=== PATIENT | male | born 1955 | race Caucasian/White ===

== ENCOUNTER 2022-12-06 11:14 | Outpatient (AMB) | payer MEDICARE, SELFPAY ==
[2022-12-06 11:25] VITALS: BP 126/88; PULSE 85; O2SAT 96; BMI 29.3
--- NOTE | 2022-12-06 11:25 | MHC.PC.OV ---
Vital Signs 12/06/22 11:25 Height 6 ft 2 in Weight 228 lb 8 oz BMI 29.3 BP 126/88 Blood Pressure Location Rt brachial Position Sitting Pulse 85 Pulse Source Pulse Oximeter Pulse Oximetry (%) 96 Oxygen Delivery Method Room Air Intake Visit Reasons: Due for A1C Allergies No Known Allergies Allergy (Verified 12/06/22 11:29) Medication List - Last Reconciled 12/06/22 by NICOLE Gama insulin glargine (Lantus U-100 Insulin) 40 units (0.4 mL) subcut DAILY insulin syringe-needle U-100 As directed to inject insulin once a day lisinopril 2.5 mg PO DAILY 90 days Tobacco use date assessed: 12/06/22 Fall risk assessment: 1 Fall in past year Last assessed Fall Risk: 12/06/22 Dental Screening Dental Screen Date: 12/06/22 Did you have a dental visit in the last 12 months?: No Did you have a dental problem in the last 6 months where you did not have access to dental care?: No Was dental information given to patient?: No HPI Due for A1C HPI Details Pt is a diabetic. A1c in office today is 9.3. Microalbumin is up to date. Denies polyuria, polydipsia, and neuropathy. Pt denies any signs and symptoms of hypoglycemia and does know how to correct it. Pt does not check his blood sugar often, encouraged him to do so. Will increase lantus from 34 units to 40 units. Due for PSA, will order. Denies dribbling with urination, weak stream, and nocturia. Will start low-dose EREN. Refuses statin or any other cholesterol medication. Refuses pneumonia vaccine. Refuses colon screen. He is to a nurse. [facility] Medical History Amputated toe of right foot Family History Paternal Uncle Substance use disorder Mother Mental health disorder Social History Housing: Apartment Patient Tobacco Use Status: Current everyday Tobacco user Tobacco use type: Smokeless Tobacco e-Cigarette/Vaping Use: Never Used service: No Current occupational status: employed Cognitive needs: No Hearing needs: No Vision needs: No Questionnaire Thrive Questionnaire Date Thrive assessed: 11/30/21 DEVANTE-7 AMB Questionnaire DEVANTE-7 Date DEVANTE - 7 assessed: 11/30/21 Source: Developed by Drs. Perez Shah, Rosetta Abbasi, Ross Hall and colleagues, with an educational jasmyne from [employer]. Review of Systems Const Reports as per HPI Physical exam (Primary Care) Vital Signs: Last Vital Signs Pulse 85 12/06/22 11:25 BP 126/88 12/06/22 11:25 Pulse Ox 96 12/06/22 11:25 Oxygen Delivery Method Room Air 12/06/22 11:25 BMI result Body Mass Index 29.3 Tobacco/Smoking Status: Tobacco use Status Tobacco use date assessed 12/06/22 12/06/22 11:33 Patient Tobacco Use Status Current everyday Tobacco 12/06/22 11:33 Tobacco use type Smokeless Tobacco 12/06/22 11:33 e-Cigarette/Vaping Use Never Used 12/06/22 11:33 Thrive Assessment: Date of Thrive Assessment Date Thrive assessed 11/30/21 12/06/22 11:33 Const General: cooperative Orientation/consciousness: patient oriented x3 Resp Other: lungs fairly clear Effort & Inspection: normal respiratory effort Cardio Rate: regular rate Rhythm: regular rhythm Heart sounds: S1 normal heart sound present and S2 normal heart sound present Neuro General: patient oriented x3 Extrem Other: bilat feet: + sensation with use of monofilament, right 3rd toe amputated, right foot dry scaling to dorsal aspect, left foot dorsal aspect with significant dry scaling Psych Appearance: grossly normal Mental Status: mental status grossly normal Speech and movement: Normal speech and movement present Affect: normal affect Attitude: cooperative Thought process: Normal thought process present Thought content: Normal thought content present Insight: Good insight present (Psych) Judgement: Good judgement present (Psych) Results AMB Hemoglobin A1c AMB Hemoglobin A1c 9.3 % Last Edit by Corrine Hudson CMA on 12/06/22 12:11 Results Reviewed Results Reviewed: Laboratory Last Values Hgb A1c (Clinic) 9.3 % (4.0-6.0) H 12/06/22 12:10 Assessment and Plan Assessment & Plan (1) Diabetes: Code(s): E11.9 - Type 2 diabetes mellitus without complications Plan: Labs ordered, encouraged lotion of feet (2) Screening PSA (prostate specific antigen): Code(s): Z12.5 - Encounter for screening for malignant neoplasm of prostate Plan: PSA ordered Plan The patient agreed to the use of a medical laboratory manager for this encounter. Scribed for NICOLE Carrillo by Portia Garcia medical laboratory manager, on 12/06/2022 at 11:40 EST. Orders: Orders Comprehensive [place]. Panel Fast Today E11.9 - Type 2 diabetes mellitus without complications Lipid Panel Today E11.9 - Type 2 diabetes mellitus without complications TSH reflex Free T4 Today E11.9 - Type 2 diabetes mellitus without complications Complete Blood Count Auto Diff Today E11.9 - Type 2 diabetes mellitus without complications UA CC w/rflx Micro + Cult Today E11.9 - Type 2 diabetes mellitus without complications Prostate Specific Antigen Scr Today Z12.5 - Encounter for screening for malignant neoplasm of prostate AMB Hemoglobin A1c Today E11.9 - Type 2 diabetes mellitus without complications Medications: New lisinopril 2.5 mg PO DAILY 90 days 90 tabs 0RF lisinopril 2.5 mg PO DAILY 90 tabs 0RF 90 days Changed From insulin glargine (Lantus U-100 Insulin) 34 units (0.34 mL) subcut DAILY 30 mL 1RF To insulin glargine (Lantus U-100 Insulin) fill this script please 40 units (0.4 mL) subcut DAILY 30 mL 1RF Refilled insulin glargine (Lantus U-100 Insulin) 34 units (0.34 mL) subcut DAILY 30 mL 1RF Coding Level of Care Code Est Pt Level 3 (97019) Diagnoses Diabetes E11.9 Screening PSA (prostate specific antigen) Z12.5
== END 2022-12-06 13:15 | disposition home or self-care (01) ==
PROVIDERS: PCP Nurse Practitioner Family; Visit Provider Nurse Practitioner Family
DX: E11.9 Type 2 diabetes mellitus without complications (principal); Z12.5 Encounter for screening for malignant neoplasm of prostate
CPT/HCPCS: 83036; 99213

== ENCOUNTER 2023-07-04 11:30 | Outpatient (AMB) | payer MEDICARE, SELFPAY ==
[2023-07-04 11:32] VITALS: BP 130/76; PULSE 78; O2SAT 97
--- NOTE | 2023-07-04 11:32 | A.OFFPC_ITS ---
Vital Signs 07/04/23 11:32 Height 6 ft 2 in Weight 234 lb BMI 30.0 BP 130/76 Blood Pressure Location Lt brachial Position Sitting Pulse 78 Pulse Source Pulse Oximeter Pulse Oximetry (%) 97 Oxygen Delivery Method Room Air Intake Visit Reasons: HDF ~ Post hospital discharge FU Intake Note: pt is here for post hosp discharge f/u Embedded Software Manager Required: No Accompanied by: Self / Same As Patient Allergies No Known Allergies Allergy (Verified 07/04/23 12:39) Medication List - Last Reconciled 07/04/23 by DERIK Gama- baclofen 10 mg PO TID PRN 30 days docusate sodium (Colace) 200 mg PO DAILY insulin glargine (Lantus U-100 Insulin) 50 units (0.5 mL) subcut DAILY insulin glargine 50 units subcut QPM insulin lispro 1 sliding scale dose subcut USEASDIRECTD insulin syringe-needle U-100 As directed to inject insulin once a day lidocaine 5% 1 patch topical DAILY lisinopril 2.5 mg PO DAILY 90 days miconazole nitrate 2% 1 appl topical BID nicotine 1 patch transdermal DAILY trazodone 50 mg PO BEDTIME PRN 30 days Tobacco use date assessed: 07/04/23 Fall risk assessment: No Falls in past year Last assessed Fall Risk: 07/04/23 Dental Screening Dental Screen Date: 07/04/23 Did you have a dental visit in the last 12 months?: Yes Did you have a dental problem in the last 6 months where you did not have access to dental care?: No Was dental information given to patient?: Patient has dentist HPI HDF ~ Post hospital discharge FU HPI Details Pt was seen in the ER on 04/08 c/o right thigh pain, right foot swelling, redness, and discharge. XR showed erosion of the distal metatarsal of the 2nd toe, unclear if this could be from previous surgery or represent ongoing or new ostemyelitis. He was given vancomycin and ceftriaxone. CT of the RLE showed right inguinal lymph node, no abnormality in anterior thigh. MRI of the right foot showed patchy marrow edema in the 2nd proximal phalanx, plantar ulceration in the medial forefoot. Labs showed normal WBC count, mild anemia, normal platelets, creatinine elevated at 1.5. Pt reports that he was treated with antibiotics. Today, he reports doing well. Denies fever, chills, and dizziness. reports his RLE feels great. He reports his ulceration to his foot is healed. A1C today is 8.5, pt does not want to change any medications. Refuses statin. [facility] Medical History Amputated toe of right foot Family History Paternal Uncle Substance use disorder Mother Mental health disorder Social History Housing: Apartment Patient Tobacco Use Status: Current everyday Tobacco user Tobacco use type: Smokeless Tobacco e-Cigarette/Vaping Use: Never Used service: No Current occupational status: employed Cognitive needs: No Hearing needs: No Vision needs: No Questionnaire Thrive Questionnaire Date Thrive assessed: 11/30/21 DEVANTE-7 AMB Questionnaire DEVANTE-7 Date DEVANTE - 7 assessed: 11/30/21 Source: Developed by Drs. Perez Shah, Rosetta Abbasi, Ross Hall and colleagues, with an educational jasmyne from [employer]. Review of Systems Const Reports as per HPI Physical exam (Primary Care) Vital Signs: Last Vital Signs Pulse 78 07/04/23 11:32 BP 130/76 07/04/23 11:32 Pulse Ox 97 07/04/23 11:32 Oxygen Delivery Method Room Air 07/04/23 11:32 BMI result Body Mass Index 30.0 Tobacco/Smoking Status: Tobacco use Status Tobacco use date assessed 07/04/23 07/04/23 11:41 Patient Tobacco Use Status Current everyday Tobacco 07/04/23 11:33 Tobacco use type Smokeless Tobacco 07/04/23 11:33 e-Cigarette/Vaping Use Never Used 07/04/23 11:33 Thrive Assessment: Date of Thrive Assessment Date Thrive assessed 11/30/21 07/04/23 11:33 Const General: cooperative Orientation/consciousness: patient oriented x3 Resp Effort & Inspection: normal respiratory effort Auscultation: clear to auscultation bilaterally Cardio Rate: regular rate Rhythm: regular rhythm and abnormal rhythm Heart sounds: S1 normal heart sound present and S2 normal heart sound present Neuro General: patient oriented x3 Extrem Other: amputated right 3rd toe, right foot plantar aspect of 1st MTP joint with healed ulceration, no signs of infection, minimal sensation to right toes, no sensation to entire left foot, + dorsalis pedus pulses, no pain with palpation of entire right thigh Psych Appearance: grossly normal Mental Status: mental status grossly normal Speech and movement: Normal speech and movement present Affect: normal affect Attitude: cooperative Thought process: Normal thought process present Thought content: Normal thought content present Insight: Good insight present (Psych) Judgement: Good judgement present (Psych) Assessment and Plan Assessment & Plan (1) Foot ulcer: Code(s): L97.509 - Non-pressure chronic ulcer of other part of unspecified foot with unspecified severity Plan: Doing well, labs ordered (2) Infection: Code(s): B99.9 - Unspecified infectious disease Plan: Doing well, labs ordered (3) Screening PSA (prostate specific antigen): Code(s): Z12.5 - Encounter for screening for malignant neoplasm of prostate Plan The patient agreed to the use of a electromedical service engineer for this encounter. Scribed for DERIK Carrillo-BC by Portia Garcia electromedical service engineer, on 07/04/2023 at 12:00 EST. Orders: Orders Complete Blood Count Auto Diff Today B99.9 - Unspecified infectious disease, L97.509 - Non-pressure chronic ulcer of other part of unspecified foot with unspecified severity Comprehensive Met. Panel Today B99.9 - Unspecified infectious disease, L97.509 - Non-pressure chronic ulcer of other part of unspecified foot with unspecified severity TSH reflex Free T4 Today B99.9 - Unspecified infectious disease, L97.509 - Non- pressure chronic ulcer of other part of unspecified foot with unspecified severity Prostate Specific Antigen Scr Today Z12.5 - Encounter for screening for malignant neoplasm of prostate UA CC w/rflx Micro + Cult Today B99.9 - Unspecified infectious disease, L97.509 - Non-pressure chronic ulcer of other part of unspecified foot with unspecified severity Coding Level of Care Code Est Pt Level 3 (91660) Diagnoses Foot ulcer L97.509 Infection B99.9 Screening PSA (prostate specific antigen) Z12.5
== END 2023-07-04 12:23 | disposition home or self-care (01) ==
PROVIDERS: PCP Nurse Practitioner Family; Visit Provider Nurse Practitioner Family
DX: L97.509 Non-pressure chronic ulcer of other part of unspecified foot with unspecified severity (principal); B99.9 Unspecified infectious disease; Z12.5 Encounter for screening for malignant neoplasm of prostate
CPT/HCPCS: 99213

== ENCOUNTER 2023-07-04 12:27 | Outpatient (REF) | payer MEDICARE, SELFPAY ==
[2023-07-04 16:27] LABS: MANUAL DIFF FLAG NO
[2023-07-04 16:32] LABS: Basophils Percent Auto 0.7 % (0-2); Eosinophils Absolute Auto 0.1 X10*3/uL (0.0-0.4); Eosinophils Percent Auto 2.6 % (0-4); Hematocrit 45.3 % (42.0-52.0); Hemoglobin 15.6 g/dl (14.0-18.0); Imm Gran Abs Auto 0.03 X10*3/uL (0.00-0.03); Imm Gran Pct Auto 0.6 % (0.0-0.4); Lymphocytes Absolute Auto 1.1 X10*3/uL (1.2-4.9); Mean Corpuscular HGB Conc 34.4 g/dl (31.0-36.0); Mean Corpuscular Hemoglobin 29.6 pg (27.0-33.0); Mean Platelet Volume 9.7 fL (9.4-12.4); Monocytes Absolute Auto 0.3 X10*3/uL (0.1-1.2); Monocytes Percent Auto 6.3 % (2-11); Neutrophils Absolute Auto 3.7 x10*3/uL (2.0-8.3); Neutrophils Percent Auto 68.8 % (45-73); Platelet Count 118 X10*3/uL (160-400); Red Blood Count 5.27 X10*6/uL (4.60-5.80); Red Cell Distribution Width 14.2 % (11.0-16.0); White Blood Count 5.4 X10*3/uL (4.8-10.8)
[2023-07-04 16:48] LABS: Alanine Aminotransferase 15 U/L (0-40); Albumin Level 4.3 g/dL (3.5-5.0); Alkaline Phosphatase 101 U/L (39-117); Anion Gap 8 (12-20); Aspartate Amino Transferase 16 U/L (5-37); Bilirubin Total 0.6 mg/dL (0.0-1.0); Blood Urea Nitrogen 18 mg/dL (9-16); Calcium 9.5 mg/dL (8.4-10.2); Carbon Dioxide 32 mmol/L (22-29); Chloride 102 mmol/L (96-108); Estimated Glomerular Filt Rate 60; Glucose Random 254 mg/dL (60-115); Potassium 4.4 mmol/L (3.3-5.1); Sodium 138 mmol/L (135-145); Total Protein 7.2 g/dL (6.5-8.0)
[2023-07-04 16:58] LABS: Prostate Specific Antigen Scr 1.05 ng/mL (<0.05-4.0)
[2023-07-04 18:06] LABS: TSH reflex Free T4 1.96 uIU/mL (0.32-4.0)
== END 2023-07-04 12:28 | disposition home or self-care (01) ==
LOC: HO.HMGCLDS 12:27
PROVIDERS: PCP Nurse Practitioner Family; Visit Provider Nurse Practitioner Family
DX: Z12.5 Encounter for screening for malignant neoplasm of prostate (principal); L97.509 Non-pressure chronic ulcer of other part of unspecified foot with unspecified severity; B99.9 Unspecified infectious disease
CPT/HCPCS: 36415; 80053; 84153; 84443; 85025

== ENCOUNTER 2023-08-03 10:08 | Outpatient (REF) | payer MEDICARE, SELFPAY ==
[2023-08-03 13:32] LABS: MANUAL DIFF FLAG NO
[2023-08-03 13:49] LABS: Basophils Percent Auto 0.6 % (0-2); Eosinophils Absolute Auto 0.1 X10*3/uL (0.0-0.4); Eosinophils Percent Auto 2.1 % (0-4); Hematocrit 44.7 % (42.0-52.0); Hemoglobin 15.5 g/dl (14.0-18.0); Imm Gran Abs Auto 0.02 X10*3/uL (0.00-0.03); Imm Gran Pct Auto 0.4 % (0.0-0.4); Lymphocytes Absolute Auto 1.2 X10*3/uL (1.2-4.9); Lymphocytes Percent Auto 24.2 % (20-40); Mean Corpuscular HGB Conc 34.7 g/dl (31.0-36.0); Mean Corpuscular Hemoglobin 29.6 pg (27.0-33.0); Mean Corpuscular Volume 85.5 fL (80.0-98.0); Mean Platelet Volume 9.2 fL (9.4-12.4); Monocytes Absolute Auto 0.3 X10*3/uL (0.1-1.2); Monocytes Percent Auto 6.9 % (2-11); Neutrophils Absolute Auto 3.2 x10*3/uL (2.0-8.3); Neutrophils Percent Auto 65.8 % (45-73); Platelet Count 115 X10*3/uL (160-400); Red Blood Count 5.23 X10*6/uL (4.60-5.80); Red Cell Distribution Width 13.6 % (11.0-16.0); White Blood Count 4.8 X10*3/uL (4.8-10.8)
== END 2023-08-03 10:09 | disposition home or self-care (01) ==
LOC: HO.HMGCLDS 10:08
PROVIDERS: PCP Nurse Practitioner Family; Visit Provider Nurse Practitioner Family
DX: D69.6 Thrombocytopenia, unspecified (principal)
CPT/HCPCS: 36415; 85025

== ENCOUNTER → 2023-09-11 12:46 | Outpatient (BNV) | payer MEDICARE, SELFPAY | PROVIDERS: PCP Nurse Practitioner Family; Referring Provider Nurse Practitioner Family; Visit Provider Internal Medicine | DX: D69.6 Thrombocytopenia, unspecified (principal) | CPT/HCPCS: 99204 ==

== ENCOUNTER 2023-11-15 09:53 | Outpatient (AMB) | payer MEDICARE, SELFPAY ==
--- NOTE | 2023-11-15 10:19 | A.OFFPC_ITS ---
Vital Signs 11/15/23 10:27 Height 6 ft 2 in Weight 242 lb BMI 31.1 BP 120/84 Blood Pressure Location Rt brachial Position Sitting Pulse 77 Pulse Source Pulse Oximeter Pulse Oximetry (%) 97 Oxygen Delivery Method Room Air Intake Visit Reasons: 4M F/U - see comments Intake Note: Patient here for DM f/u. Allergies No Known Allergies Allergy (Verified 11/15/23 10:47) Medication List - Last Reconciled 11/15/23 by NICOLE Gama baclofen 10 mg PO TID PRN 30 days docusate sodium (Colace) 200 mg PO DAILY insulin glargine 60 units subcut QPM insulin syringe-needle U-100 Use to inject insulin 4 times per day lisinopril 2.5 mg PO DAILY 90 days Tobacco use date assessed: 07/04/23 Fall risk assessment: No Falls in past year Last assessed Fall Risk: 11/15/23 Dental Screening Dental Screen Date: 07/04/23 HPI 4M F/U - see comments HPI Details Pt is a diabetic, on an EREN. A1C in office today is 10.1. Due for microalbumin, will order. Denies polyuria, polydipsia, gets intermittent neuropathy. Pt denies any signs and symptoms of hypoglycemia and does know how to correct it. Will increase lantus from 50 units to 60 units. Pt refuses mealtime insulin. He does not really want a eye exam, still placed referral in. Refuses any type of cholesterol med and colon screens. Pt also refuses any pneumo vaccinations. [facility] Medical History Amputated toe of right foot Family History Paternal Uncle Substance use disorder Mother Mental health disorder Social History Household Members: Spouse Housing: Apartment Patient Tobacco Use Status: Current everyday Tobacco user Tobacco use type: Smokeless Tobacco e-Cigarette/Vaping Use: Never Used service: No Current occupational status: employed Cognitive needs: No Hearing needs: No Vision needs: No Questionnaire PHQ-9 Over the last 2 weeks, how often have you been bothered by any of the following problems? 1. Little interest or pleasure in doing things: not at all 2. Feeling down, depressed, or hopeless: not at all 3. Trouble falling or staying asleep, or sleeping too much: not at all 4. Feeling tired or having little energy: not at all 5. Poor appetite or overeating: not at all 6. Feeling bad about yourself - or that you are a failure or have let yourself or your family down: not at all 7. Trouble concentrating on things, such as reading the newspaper or watching television: not at all 8. Moving or speaking so slowly that other people could have noticed. Or the opposite - being so fidgety or restless that you have been moving around a lot more than usual: not at all 9. Thoughts that you would be better off or of hurting yourself in some way: not at all Total score: 0 Depression Screening Interpretation: Negative Depression Screening Done: Yes 77076 - PHQ-9 Billing: Yes Source: Developed by Drs. Perez Shah, Rosetta Abbasi, Ross Hall and colleagues, with an educational jasmyne from [employer]. Thrive Questionnaire Date Thrive assessed: 11/15/23 I am a: Patient What is your living situation today?: I have a steady place to live Within the past 12 months, did the food you bought not last and you didn't have the money to get more?: Never true Within the past 12 months, did you worry whether your food would run out before you got money to buy more?: Never true Do you have trouble paying for medicines?: No Do you have trouble getting transportation to medical appointments?: No Do you have trouble paying your heating and electricity bill?: No Do you have trouble taking care of your child, family member or friend?: No Do you have trouble with day-to-day activities such as bathing, preparing meals, shopping, managing finances, etc.?: No Are you currently unemployed and looking for a job?: No Are you interested in more education?: No Please select the resources that you would like help with: Housing/Prison Currently or been in a relationship where the following occur: No concerns reported THRIVE Score: 0 AUDIT C Alcohol Use Questionnaire (AUDIT-C) 1. How often do you have a drink containing alcohol?: 2-4 times a month 2. How many drinks containing alcohol do you have on a typical day when you are drinking?: 1 or 2 3. How often do you have six or more drinks on one occasion?: Never Total Score: 2 DEVANTE-7 AMB Questionnaire DEVANTE-7 Date DEVANTE - 7 assessed: 11/15/23 Feeling nervous, anxious, or on edge: 0 = Not at all Not being able to stop or control worryin = Not at all Worrying too much about different things: 0 = Not at all Trouble relaxin = Not at all Being so restless that it is hard to sit still: 0 = Not at all Becoming easily annoyed or irritable: 0 = Not at all Feeling afraid as if something awful might happen: 0 = Not at all Total DEVANTE-7 score (0-4 normal; 5-9 mild; 10-14 moderate; 15-21 severe): 0 Source: Developed by Drs. Perez Shah, Rosetta Abbasi, Ross Hall and colleagues, with an educational jasmyne from [employer]. DEVANTE-7 Assessment Billing DEVANTE-7 Assessment Tool: DEVANTE-7 Assessment [id number] Review of Systems Const Reports as per HPI Physical exam (Primary Care) Vital Signs: Last Vital Signs Pulse 77 11/15/23 10:27 BP 120/84 11/15/23 10:27 Pulse Ox 97 11/15/23 10:27 Oxygen Delivery Method Room Air 11/15/23 10:27 BMI result Body Mass Index 31.1 Tobacco/Smoking Status: Tobacco use Status Tobacco use date assessed 07/04/23 11/15/23 10:19 Patient Tobacco Use Status Current everyday Tobacco 11/15/23 10:19 Tobacco use type Smokeless Tobacco 11/15/23 10:19 e-Cigarette/Vaping Use Never Used 11/15/23 10:19 PHQ-9: PHQ-9 Score PHQ-9: Total score 0 11/15/23 10:37 Depression Screening Interpretation: Negative Thrive Assessment: Date of Thrive Assessment Date Thrive assessed 11/15/23 11/15/23 10:31 Currently or been in a relationship where the following occur: No concerns reported Const General: cooperative Orientation/consciousness: patient oriented x3 Resp Effort & Inspection: normal respiratory effort Auscultation: clear to auscultation bilaterally Cardio Rate: regular rate Rhythm: regular rhythm Heart sounds: S1 normal heart sound present and S2 normal heart sound present Neuro General: patient oriented x3 Extrem Other: bilat feet: + sensation with use of monofilament, right foot dry skin, amputated right 3rd toe, left foot 2nd toe dorsal aspect with small linear abrasion Psych Appearance: grossly normal Mental Status: mental status grossly normal Speech and movement: Normal speech and movement present Affect: normal affect Attitude: cooperative Thought process: Normal thought process present Thought content: Normal thought content present Insight: Good insight present (Psych) Judgement: Good judgement present (Psych) Results AMB Hemoglobin A1c AMB Hemoglobin A1c 10.1 % Last Edit by GLORIA Burnett on 11/15/23 10:52 Assessment and Plan Assessment & Plan (1) Diabetes: Code(s): E11.9 - Type 2 diabetes mellitus without complications Plan: Labs ordered Plan The patient agreed to the use of a medical service representative for this encounter. Scribed for NICOLE Carrillo by krista Bowers scribe, on 11/15/2023 at 10:35 EST. Orders: Orders Microalbumin, Random (w Creat) Today E11.9 - Type 2 diabetes mellitus without complications Complete Blood Count Auto Diff Today E11.9 - Type 2 diabetes mellitus without complications TSH reflex Free T4 Today E11.9 - Type 2 diabetes mellitus without complications UA CC w/rflx Micro + Cult Today E11.9 - Type 2 diabetes mellitus without complications AMB Hemoglobin A1c Today E11.9 - Type 2 diabetes mellitus without complications Comprehensive [place]. Panel Fast Today E11.9 - Type 2 diabetes mellitus without complications Lipid Panel Today E11.9 - Type 2 diabetes mellitus without complications Referrals Ophthalmology Referral E11.9 - Type 2 diabetes mellitus without complications Medications: New insulin glargine 90 day supply 60 units (0.6 mL) subcut QPM 10 mL 0RF Refilled insulin syringe-needle U-100 Use to inject insulin 4 times per day 400 ea 1RF E11.65 - Type 2 diabetes mellitus with hyperglycemia Coding Level of Care Code Est Pt Level 3 (11516) Diagnoses Diabetes E11.9 Additional Codes DEVANTE-7 Assessment Billing - DEVANTE-7 Assessment Tool: DEVANTE-7 Assessment [id number] ([id number])
[2023-11-15 10:27] VITALS: BP 120/84; PULSE 77; O2SAT 97; BMI 31.1
== END 2023-11-15 12:34 | disposition home or self-care (01) ==
PROVIDERS: PCP Nurse Practitioner Family; Visit Provider Nurse Practitioner Family
DX: E11.9 Type 2 diabetes mellitus without complications (principal)
CPT/HCPCS: 83036; 99213

== ENCOUNTER 2024-03-19 10:56 | Outpatient (AMB) | payer MEDICARE, SELFPAY ==
[2024-03-19 11:08] VITALS: BP 130/68; PULSE 79; O2SAT 95; BMI 32.4
--- NOTE | 2024-03-19 11:08 | MHC.PC.OV ---
Vital Signs 03/19/24 11:08 Height 6 ft 2 in Weight 252 lb 2 oz BMI 32.4 BP 130/68 Blood Pressure Location Lt brachial Position Sitting Pulse 79 Pulse Source Pulse Oximeter Pulse Oximetry (%) 95 Oxygen Delivery Method Room Air Intake Visit Reasons: 4M f/u Allergies No Known Allergies Allergy (Verified 03/19/24 11:08) Medication List - Last Reconciled 03/19/24 by VESNA GamaPVictor Hugo insulin glargine 60 units (0.6 mL) subcut QPM insulin syringe-needle U-100 Use to inject insulin 4 times per day lisinopril 2.5 mg PO DAILY 90 days trazodone 50 mg PO DAILY PRN Tobacco use date assessed: 03/19/24 Fall risk assessment: No Falls in past year Dental Screening Dental Screen Date: 03/19/24 Did you have a dental visit in the last 12 months?: No Did you have a dental problem in the last 6 months where you did not have access to dental care?: No Was dental information given to patient?: Patient declined HPI 4M f/u HPI Details History of Present Illness The patient is a 68-year-old male presenting with diabetes management issues and assessment of diabetic neuropathy. The patient's Hemoglobin A1c has improved from 10.1 to 7.5, attributed to lifestyle changes, including abstaining from alcohol consumption. He reports recent episodes of drinking Fireball, which previously elevated his A1c levels. The patient also indicates difficulty sleeping, associated with his 's recent diagnosis of double pneumonia and bronchitis. His sleep disturbances have increased, attributed to his 's symptoms and his discomfort in sleeping positions due to past use of a percutaneous endoscopic gastrostomy line. Additionally, he reports intermittent numbness and tingling in his feet, suggestive of diabetic neuropathy, but denies severe symptoms. He has been using a diabetic cream for foot care. Examination of his right foot revealed dry skin and issues with toenail health, likely onychomycosis, which has caused toenail shedding without pain. The patient mentions seeing a workday financials consultant, who noted excruciating foot pain, but the details of any specific interventions are unclear. His physical activity has decreased due to fatigue, with walking less frequent. Refuses vaccinations, eye exams. Social History - The patient experiences disturbances in sleep due to his 's recent health issues. - Reports reduced physical activity, walking only every other day, due to fatigue. - Occasionally consumes alcohol which affects his diabetes control. - His has a history of degenerative lung disease, impacting home dynamics. Review of Systems - General: Denies weight gain; reports weight is decreasing. - Neurological: Reports intermittent numbness and tingling in feet. - Musculoskeletal: Denies severe pain in the feet. - Dermatological: Reports shedding of the toenail without pain. Physical Exam - Dermatology- Observed dry skin on the right foot. - Musculoskeletal- Inspection reveals shedding of the right big toenail. + sensation with use of monofilament. right foot, third toe amputated, feet very dry bilat (R>L) -s1 s2 -clear _ Results - Labs: Hemoglobin A1c was 7.5 at this visit, previously 10.1. Plan - For Type 2 Diabetes Mellitus: Continue monitoring A1c; advised against alcohol use, as it negatively impacts glucose control. - For Insomnia: Avoid changing sleep aids; discuss a combination of non-pharmacological and pharmacological approaches, considering trazodone if necessary. - For Chronic Diabetic Neuropathy: Educated on neuropathic symptoms; advised continued use of diabetic creams and monitoring. - For Dermatophytic Onychomycosis: Continue current topical antifungal treatment; scheduled follow-up with podiatry for further recommendations. 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 Patient was informed and verbally consented to the use of an ambient scribe for clinic note documentation during this visit. Discussion Notes I discussed with the patient the importance of consistent glucose monitoring and the significant role of lifestyle changes, including limiting alcohol, in managing his diabetes effectively. The successful reduction in his Hemoglobin A1c level was noted, and ways to maintain this improvement were reviewed. I advised continuing his current diabetic foot care regimen and addressed his concerns regarding neuropathy, confirming intermittent symptoms were not severe and advising adherence to current management strategies. Regarding his sleep disturbances, we discussed how the current family stressors contribute, and potential pharmacological solutions like trazodone were mentioned. I recommended considering environmental adjustments and non-drug interventions to improve sleep quality, though will send trazodone for PRN use. The necessity of follow-up with podiatry was emphasized to address his dermatological issues comprehensively. ALL vaccinations were refused. We also discussed the impacts of his 's lung issues on their home life and advised awareness of stress factors. Patient Instructions - Monitor and record blood glucose levels regularly. - Limit or avoid alcohol consumption to maintain glucose control. - Continue current diabetic foot care regimen with prescribed creams. - Engage in suggested sleep hygiene practices for improved rest. - Schedule and attend follow-up appointments, especially for foot issues with podiatry. - Manage stress factors in relation to 's health condition. [facility] Medical History Amputated toe of right foot Family History Paternal Uncle Substance use disorder Mother Mental health disorder Social History Household Members: Spouse Housing: Apartment Patient Tobacco Use Status: Current everyday Tobacco user Tobacco use type: Smokeless Tobacco e-Cigarette/Vaping Use: Never Used service: No Current occupational status: employed Cognitive needs: No Hearing needs: No Vision needs: No Questionnaire PHQ-9 Over the last 2 weeks, how often have you been bothered by any of the following problems? 1. Little interest or pleasure in doing things: not at all 2. Feeling down, depressed, or hopeless: not at all 3. Trouble falling or staying asleep, or sleeping too much: not at all 4. Feeling tired or having little energy: not at all 5. Poor appetite or overeating: not at all 6. Feeling bad about yourself - or that you are a failure or have let yourself or your family down: not at all 7. Trouble concentrating on things, such as reading the newspaper or watching television: not at all 8. Moving or speaking so slowly that other people could have noticed. Or the opposite - being so fidgety or restless that you have been moving around a lot more than usual: not at all 9. Thoughts that you would be better off or of hurting yourself in some way: not at all Total score: 0 Depression Screening Interpretation: Negative Depression Screening Done: Yes 53052 - PHQ-9 Billing: Yes Source: Developed by Drs. Perez Shah, Rosetta Abbasi, Ross Hall and colleagues, with an educational jasmyne from [employer]. Thrive Questionnaire Date Thrive assessed: 03/19/24 I am a: Patient What is your living situation today?: I have a steady place to live Within the past 12 months, did the food you bought not last and you didn't have the money to get more?: Never true Within the past 12 months, did you worry whether your food would run out before you got money to buy more?: Never true Do you have trouble paying for medicines?: No Do you have trouble getting transportation to medical appointments?: No Do you have trouble paying your heating and electricity bill?: No Do you have trouble taking care of your child, family member or friend?: No Do you have trouble with day-to-day activities such as bathing, preparing meals, shopping, managing finances, etc.?: No Are you currently unemployed and looking for a job?: No Are you interested in more education?: No Please select the resources that you would like help with: None Currently or been in a relationship where the following occur: No concerns reported THRIVE Score: 0 AUDIT C Alcohol Use Questionnaire (AUDIT-C) 1. How often do you have a drink containing alcohol?: 2-4 times a month 2. How many drinks containing alcohol do you have on a typical day when you are drinking?: 1 or 2 3. How often do you have six or more drinks on one occasion?: Never Total Score: 2 DEVANTE-7 AMB Questionnaire DEVANTE-7 Date DEVANTE - 7 assessed: 03/19/24 Feeling nervous, anxious, or on edge: 0 = Not at all Not being able to stop or control worryin = Not at all Worrying too much about different things: 0 = Not at all Trouble relaxin = Not at all Being so restless that it is hard to sit still: 0 = Not at all Becoming easily annoyed or irritable: 0 = Not at all Feeling afraid as if something awful might happen: 0 = Not at all Total DEVANTE-7 score (0-4 normal; 5-9 mild; 10-14 moderate; 15-21 severe): 0 Source: Developed by Drs. Perez Shah, Rosetta Abbasi, Ross Hall and colleagues, with an educational jasmyne from [employer]. DEVANTE-7 Assessment Billing DEVANTE-7 Assessment Tool: DEVANTE-7 Assessment 09200 Physical exam (Primary Care) Vital Signs: Last Vital Signs Pulse 79 03/19/24 11:08 BP 130/68 03/19/24 11:08 Pulse Ox 95 03/19/24 11:08 Oxygen Delivery Method Room Air 03/19/24 11:08 BMI result Body Mass Index 32.4 Tobacco/Smoking Status: Tobacco use Status Tobacco use date assessed 03/19/24 03/19/24 11:09 Patient Tobacco Use Status Current everyday Tobacco 03/19/24 11:09 Tobacco use type Smokeless Tobacco 03/19/24 11:09 e-Cigarette/Vaping Use Never Used 03/19/24 11:09 PHQ-9: PHQ-9 Score PHQ-9: Total score 0 03/19/24 11:19 Depression Screening Interpretation: Negative Thrive Assessment: Date of Thrive Assessment Date Thrive assessed 03/19/24 03/19/24 11:09 Currently or been in a relationship where the following occur: No concerns reported Results AMB Hemoglobin A1c AMB Hemoglobin A1c 7.5 % Last Edit by Mary Mims CMA on 03/19/24 11:26 Results Reviewed Results Reviewed: Laboratory Last Values Hgb A1c (Clinic) 7.5 % (4.0-6.0) H 03/19/24 11:21 Coding Level of Care Code Est Pt Level 3 (91370) Diagnoses Amputated toe of right foot S98.131A Diabetes E11.9 Additional Codes DEVANTE-7 Assessment Billing - DEVANTE-7 Assessment Tool: DEVANTE-7 Assessment 95250 ([id number]) PHQ-9 - 65691 - PHQ-9 Billing: Yes ([id number]) Assessment & Plan Assessment & Plan (1) Amputated toe of right foot: Code(s): S98.131A - Complete traumatic amputation of one right lesser toe, initial encounter Category: Medical (2) Diabetes: Code(s): E11.9 - Type 2 diabetes mellitus without complications Category: Medical Plan . Orders: Orders AMB Hemoglobin A1c Today Z13.9 - Encounter for screening, unspecified Medications: New trazodone 50 mg PO DAILY PRN 90 tabs 0RF insomnia trazodone 50 mg PO DAILY PRN 90 tabs 0RF insomnia
== END 2024-03-19 12:16 | disposition home or self-care (01) ==
PROVIDERS: PCP Nurse Practitioner Family; Visit Provider Nurse Practitioner Family
DX: S98.131A Complete traumatic amputation of one right lesser toe, initial encounter (principal); E11.9 Type 2 diabetes mellitus without complications

== ENCOUNTER 2024-03-19 10:56 | Outpatient (REF) | payer MEDICARE, SELFPAY ==
[2024-03-19 13:20] LABS: MANUAL DIFF FLAG NO
[2024-03-19 13:32] LABS: Basophils Percent Auto 0.6 % (0-2); Eosinophils Absolute Auto 0.2 X10*3/uL (0.0-0.4); Eosinophils Percent Auto 3.2 % (0-4); Hematocrit 42.6 % (42.0-52.0); Hemoglobin 14.6 g/dl (14.0-18.0); Imm Gran Abs Auto 0.02 X10*3/uL (0.00-0.03); Imm Gran Pct Auto 0.4 % (0.0-0.4); Lymphocytes Absolute Auto 1.2 X10*3/uL (1.2-4.9); Lymphocytes Percent Auto 25.1 % (20-40); Mean Corpuscular HGB Conc 34.3 g/dl (31.0-36.0); Mean Corpuscular Hemoglobin 30.4 pg (27.0-33.0); Mean Corpuscular Volume 88.6 fL (80.0-98.0); Mean Platelet Volume 9.4 fL (9.4-12.4); Monocytes Absolute Auto 0.3 X10*3/uL (0.1-1.2); Neutrophils Percent Auto 64.7 % (45-73); Red Blood Count 4.81 X10*6/uL (4.60-5.80); Red Cell Distribution Width 13.2 % (11.0-16.0); White Blood Count 4.7 X10*3/uL (4.8-10.8)
[2024-03-19 13:32] LABS: Appearance Urine Clear; Color Urine Yellow; Glucose Urine UA Negative (Negative); Leukocyte Esterase Urine Negative (Negative); Nitrite Urine Negative (Negative); PH 5.5 (5.0-9.0); Specific Gravity - Urine 1.015 (1.005-1.025); Urine Blood Negative (Negative); Urine Ketones Negative (Negative); Urine Protein Negative (Neg-Trace)
[2024-03-19 13:41] LABS: Platelet Count 93 X10*3/uL (160-400)
[2024-03-19 13:47] LABS: Alanine Aminotransferase 24 U/L (0-40); Albumin Level 4.1 g/dL (3.5-5.0); Alkaline Phosphatase 91 U/L (39-117); Anion Gap 14 (12-20); Aspartate Amino Transferase 25 U/L (5-37); Bilirubin Total 0.5 mg/dL (0.0-1.0); Blood Urea Nitrogen 14 mg/dL (9-16); Calcium 8.8 mg/dL (8.4-10.2); Carbon Dioxide 30 mmol/L (22-29); Chloride 102 mmol/L (96-108); Cholesterol 155 mg/dL (<200); Estimated Glomerular Filt Rate > 60; Glucose Fasting 158 mg/dL (60-99); HDL Cholesterol 29 mg/dL (>40); LDL Cholesterol Calculated 98 mg/dL (<100); Potassium 4.2 mmol/L (3.3-5.1); Sodium 142 mmol/L (135-145); Total Protein 6.5 g/dL (6.5-8.0); Triglycerides 144 mg/dL (<150)
[2024-03-19 13:50] LABS: Microalbum/Creatinine Ratio Ur 18.9 ug/mg cr (<30)
[2024-03-19 14:04] LABS: TSH reflex Free T4 2.52 uIU/mL (0.32-4.0)
== END 2024-03-19 10:57 | disposition home or self-care (01) ==
LOC: HO.HMGCLDS 10:56
PROVIDERS: PCP Nurse Practitioner Family; Visit Provider Nurse Practitioner Family
DX: E11.40 Type 2 diabetes mellitus with diabetic neuropathy, unspecified (principal); S98.131D Complete traumatic amputation of one right lesser toe, subsequent encounter; G47.00 Insomnia, unspecified; B35.1 Tinea unguium
CPT/HCPCS: 36415; 80053; 80061; 81003; 82043; 82570; 83036; 84443; 85025; 96127; 99212

== ENCOUNTER 2024-09-18 10:15 | Outpatient (AMB) | payer MEDICARE, SELFPAY ==
[2024-09-18 10:22] VITALS: BP 132/76; PULSE 94; RESP 16; TEMP 36.9; O2SAT 97; BMI 30.6
--- NOTE | 2024-09-18 10:22 | A.OFFPC_ITS ---
Vital Signs 09/18/24 10:22 Height 6 ft 2 in Weight 238 lb BMI 30.6 BP 132/76 Respiration 16 Pulse 94 Pulse Source Pulse Oximeter Temp 98.4 F Temp Source Oral Pulse Oximetry (%) 97 Oxygen Delivery Method Room Air Intake Visit Reasons: 6m follow up - see comments Drawer Fitter Required: No Accompanied by: Self / Same As Patient Allergies No Known Allergies Allergy (Verified 09/18/24 10:22) Tobacco use date assessed: 09/18/24 Fall risk assessment: No Falls in past year Last assessed Fall Risk: 09/18/24 Dental Screening Dental Screen Date: 09/18/24 Did you have a dental visit in the last 12 months?: No Did you have a dental problem in the last 6 months where you did not have access to dental care?: No HPI 6m follow up - see comments HPI Details Chief Complaint The patient presents for management of diabetes and care for a foot wound. History of Present Illness The patient is a 68-year-old male presenting with a need for management of diabetes and care for a foot wound. His diabetes mellitus is currently managed with a notable HbA1c of 7.3. He adheres to his medication regimen and is making efforts to prepare his own meals. The pt's spouse un expectedly approx 1.5 weeks ago. Pt reports doing fair, denies any si or hi. He reports he is managing at home. He also presents with a wound on the plantar aspect of his right foot at the first MTP joint. The wound is open, circular, and surrounded by callused tissue with some black eschar, yet shows no signs of infection. A dorsalis pedis pulse is intact. Additionally, he has an amputated second toe. The patient reports a recent injury to his left big toenail, which was torn while putting on a sock, though it is still attached and shows no signs of infection. Social History - The patient is actively working on [employer] his own meals. - He is adherent to his prescribed medic ations. - The patient recently lost his , im pacting his social support network. Health Maintenance - Refuses all vaccinations, including pn eumonia vaccinations. - Refuses colon cancer screening. - Refuses eye examinations. Review of Systems - Cardiovascular: Reports recent exacerb ation of congestive heart failure. - Endocrine: Reports management of diabe shanna with current HbA1c of 7.3. - Integumentary: Reports a wound on the plantar aspect of the right foot and a traumatic injury to the left big toenail. - General: Denies signs of infection in the wounds. Physical Exam General: Cooperative, healthy appearing, comfortable, no acute distress and well developed Orientation: Patient oriented x3 Limitations: No limitations Head: Normal to inspection Ears: Hearing grossly normal bilaterally Nose: Normal external nose present Face and sinus: Normal facial exam Eyes: Appearance normal, both eyes and all related structures Neck: Normal visual inspection and Yes full ROM Respiratory: Normal respiratory effort and able to speak in complete sentences. Clear to auscultation bilaterally Cardiovascular: Regular rate and rhythm. Normal S1 and S2 GI: Normal to inspection. Soft to palpation and nontender Skin: No rashes or lesions noted Neuro: Patient oriented x3 Extremities: Right foot has a wound on the plantar aspect at the first MTP joint, circular open area without signs of infection, surrounding tissue callused with some black eschar, positive dorsalis pedis pulse. Amputated second toe on the right foot. Left foot big toenail is pulled back but still present and attached, no signs of infection. Normal to inspection otherwise. Results - Labs: HbA1c level of 7.3. Plan 1. 3 indicating improved control. The pa isabel is compliant with his medications and dietary changes. For the right foot wound, I will apply a collagen matrix dressing and advise on recognizing signs of infection. He will continue weekly visits to the wound center, and if necessary, I will refer him to a supervisor laboratory for toenail removal. Despite his refusal of vaccinations and screenings, I encourage reconsideration of these preventive health measures.: Discussion Notes I discussed with the patient the importance of maintaining his diabetes management and acknowledged the improvement in his HbA1c levels. We reviewed the care plan for his foot wound, including the use of a collagen matrix dressing and monitoring for signs of infection. I advised on the potential need for podiatry consultation if the toenail issue is not resolved at the wound center. We discussed the benefits and necessity of vaccinations and screenings, although the patient declined these preventive measures. I stressed the importance of recognizing signs of infection and the need for timely medical intervention. Follow-up with the wound center is planned, and further action will be taken if necessary. Patient Instructions - Continue taking all prescribed medicat ions. - Monitor blood sugar levels as instruct ed. - Prepare meals focusing on a diabetic-f riendly diet. - Follow wound care instructions provide d by the wound center. - Watch for signs of infection in the fo ot wound and toenail. - Attend weekly appointments at the [facility]. - Consider vaccinations and screenings f or preventive health. [facility] Medical History Amputated toe of right foot Family History Paternal Uncle Substance use disorder Mother Mental health disorder Social History Household Members: Spouse Housing: Apartment Alcohol intake: current Alcohol intake frequency: a few times a week Patient Tobacco Use Status: Current everyday Tobacco user Tobacco use type: Smokeless Tobacco e-Cigarette/Vaping Use: Never Used service: No Current occupational status: retired Cognitive needs: No Hearing needs: No Vision needs: Yes (reading glasses) Questionnaire PHQ-9 Over the last 2 weeks, how often have you been bothered by any of the following problems? 1. Little interest or pleasure in doing things: nearly every day 2. Feeling down, depressed, or hopeless: nearly every day 3. Trouble falling or staying asleep, or sleeping too much: nearly every day 4. Feeling tired or having little energy: nearly every day 5. Poor appetite or overeating: nearly every day 6. Feeling bad about yourself - or that you are a failure or have let yourself or your family down: not at all 7. Trouble concentrating on things, such as reading the newspaper or watching television: not at all 8. Moving or speaking so slowly that other people could have noticed. Or the opposite - being so fidgety or restless that you have been moving around a lot more than usual: not at all 9. Thoughts that you would be better off or of hurting yourself in some way: not at all Total score: 15 Depression Screening Interpretation: Positive Depression Screening Follow-up: Existing condition and Declines treatment Depression Screening Done: Yes Source: Developed by Drs. Perez Shah, Rosetta Abbasi, Ross Hall and colleagues, with an educational jasmyne from [employer]. Thrive Questionnaire Date Thrive assessed: 09/18/24 I am a: Patient What is your living situation today?: I have a steady place to live Within the past 12 months, did the food you bought not last and you didn't have the money to get more?: Never true Within the past 12 months, did you worry whether your food would run out before you got money to buy more?: Never true Do you have trouble paying for medicines?: No Do you have trouble getting transportation to medical appointments?: No Do you have trouble paying your heating and electricity bill?: No Do you have trouble taking care of your child, family member or friend?: No Do you have trouble with day-to-day activities such as bathing, preparing meals, shopping, managing finances, etc.?: No Are you currently unemployed and looking for a job?: No Are you interested in more education?: No Please select the resources that you would like help with: None Currently or been in a relationship where the following occur: No concerns reported THRIVE Score: 0 AUDIT C Alcohol Use Questionnaire (AUDIT-C) 1. How often do you have a drink containing alcohol?: 2-3 times a week 2. How many drinks containing alcohol do you have on a typical day when you are drinking?: 1 or 2 3. How often do you have six or more drinks on one occasion?: Never Total Score: 3 DEVANTE-7 AMB Questionnaire DEVANTE-7 Date DEVANTE - 7 assessed: 09/18/24 Feeling nervous, anxious, or on edge: 3 = Nearly every day Not being able to stop or control worryin = Nearly every day Worrying too much about different things: 3 = Nearly every day Trouble relaxin = Nearly every day Being so restless that it is hard to sit still: 3 = Nearly every day Becoming easily annoyed or irritable: 3 = Nearly every day Feeling afraid as if something awful might happen: 2 = More than half the days Total DEVANTE-7 score (0-4 normal; 5-9 mild; 10-14 moderate; 15-21 severe): 20 Source: Developed by Drs. Perez Shah, Rosetta Abbasi, Ross Hall and colleagues, with an educational jasmyne from [employer]. DEVANTE-7 Assessment Billing DEVANTE-7 Assessment Tool: DEVANTE-7 Assessment 69579 (denies any si or hi) Physical exam (Primary Care) Vital Signs: Last Vital Signs Temp 98.4 F 09/18/24 10:22 Pulse 94 09/18/24 10:22 Resp 16 09/18/24 10:22 BP 132/76 09/18/24 10:22 Pulse Ox 97 09/18/24 10:22 Oxygen Delivery Method Room Air 09/18/24 10:22 BMI result Body Mass Index 30.6 Tobacco/Smoking Status: Tobacco use Status Tobacco use date assessed 09/18/24 09/18/24 10:24 Patient Tobacco Use Status Current everyday Tobacco 09/18/24 10:34 Tobacco use type Smokeless Tobacco 09/18/24 10:34 e-Cigarette/Vaping Use Never Used 09/18/24 10:34 PHQ-9: PHQ-9 Score PHQ-9: Total score 15 09/18/24 10:39 Depression Screening Interpretation: Positive Depression Screening Follow-up: Existing condition and Declines treatment Thrive Assessment: Date of Thrive Assessment Date Thrive assessed 09/18/24 09/18/24 10:24 Currently or been in a relationship where the following occur: No concerns reported Results AMB Hemoglobin A1c AMB Hemoglobin A1c 7.3 % Last Edit by MONICA Guerrero on 09/18/24 10:44 Results Reviewed Results Reviewed: Laboratory Last Values Hgb A1c (Clinic) 7.3 % (4.0-6.0) H 09/18/24 10:24 Coding Level of Care Code Est Pt Level 4 (57429) Diagnoses Diabetes E11.9 Foot ulcer L97.509 Torn toenail S99.829A Additional Codes DEVANTE-7 Assessment Billing - DEVANTE-7 Assessment Tool: DEVANTE-7 Assessment 87539 ([id number]) Assessment & Plan Assessment & Plan (1) Diabetes: Code(s): E11.9 - Type 2 diabetes mellitus without complications Category: Medical (2) Foot ulcer: Code(s): L97.509 - Non-pressure chronic ulcer of other part of unspecified foot with unspecified severity Category: Medical (3) Torn toenail: Code(s): S99.829A - Other specified injuries of unspecified foot, initial encounter Category: Medical Plan . Orders: Orders Complete Blood Count Auto Diff Today E11.9 - Type 2 diabetes mellitus without complications UA CC w/rflx Micro + Cult Today E11.9 - Type 2 diabetes mellitus without complications Microalbumin, Random (w Creat) Today E11.9 - Type 2 diabetes mellitus without complications AMB Hemoglobin A1c Today E11.9 - Type 2 diabetes mellitus without complications Comprehensive [place]. Panel Fast Today E11.9 - Type 2 diabetes mellitus without complications TSH reflex Free T4 Today E11.9 - Type 2 diabetes mellitus without complications Lipid Panel Today E11.9 - Type 2 diabetes mellitus without complications
== END 2024-09-18 11:27 | disposition home or self-care (01) ==
LOC: HO.HMCC 10:16
PROVIDERS: PCP Nurse Practitioner Family; Visit Provider Nurse Practitioner Family
DX: E11.621 Type 2 diabetes mellitus with foot ulcer (principal); L97.519 Non-pressure chronic ulcer of other part of right foot with unspecified severity; S99.822A Other specified injuries of left foot, initial encounter

== ENCOUNTER → 2024-09-18 10:15 | Outpatient (BNVA) | payer MEDICARE, SELFPAY | PROVIDERS: PCP Nurse Practitioner Family; Visit Provider Nurse Practitioner Family | DX: E11.621 Type 2 diabetes mellitus with foot ulcer (principal); L97.519 Non-pressure chronic ulcer of other part of right foot with unspecified severity; S99.922A Unspecified injury of left foot, initial encounter; X58.XXXA Exposure to other specified factors, initial encounter; Y93.9 Activity, unspecified; Y92.9 Unspecified place or not applicable; Y99.9 Unspecified external cause status | CPT/HCPCS: 83036; 96127; 99212 ==

== ENCOUNTER 2024-11-06 12:58 | Outpatient (AMB) | payer MEDICARE, SELFPAY ==
[2024-11-06 13:26] VITALS: BP 100/58; PULSE 74; RESP 17; TEMP 36.9; O2SAT 95; BMI 30.6
--- NOTE | 2024-11-06 13:26 | MHC.PC.OV ---
Vital Signs 11/06/24 13:26 Height 6 ft 2 in Weight 238 lb BMI 30.6 BP 100/58 L Blood Pressure Location Rt brachial Position Sitting Respiration 17 Pulse 74 Pulse Source Pulse Oximeter Temp 98.4 F Temp Source Oral Pulse Oximetry (%) 95 Oxygen Delivery Method Room Air Intake Visit Reasons: dean Perez per Dr Gonzales Intake Note: Pt is here today for a DM shoe evaluation (Pt of Ian Mckenna) Allergies No Known Allergies Allergy (Verified 11/06/24 13:51) Medication List - Last Reconciled 11/06/24 by Dinorah Pineda MD insulin glargine 50 units subcut QPM insulin syringe-needle U-100 Use to inject insulin 4 times per day lisinopril 2.5 mg PO DAILY 90 days nicotine (Nicoderm CQ) 1 patch transdermal DAILY trazodone 50 mg PO DAILY PRN Tobacco use date assessed: 11/06/24 Fall risk assessment: No Falls in past year Last assessed Fall Risk: 11/06/24 Dental Screening Dental Screen Date: 11/06/24 Did you have a dental visit in the last 12 months?: No Did you have a dental problem in the last 6 months where you did not have access to dental care?: No Was dental information given to patient?: Patient has dentist HPI dean Perez per Dr Gonzales HPI Details 68-year-old male patient of Ian Jean Baptiste NP, with history of diabetes mellitus with long-term insulin use, diabetic ulcer right foot, with diabetic neuropathy, here today for a diabetic foot exam. His most recent hemoglobin A1c is at 7.3% 09/18/2024. He is currently being seen at [facility] wound care in [place] for treatment of his diabetic ulcer on the right, and need a prescription for [employer] medsurg offloading shoe with PEG assist insole on the right. He has visiting nurse changing his dressing on the right foot twice a week, has now been compliant with his diet and taking his medications. No complaints of pain in both feet but has decreased sensation bilaterally to both touch and monofilament test. 09/18/24 10:24 Hgb A1c (Clinic) 7.3 H [facility] Medical History (Updated 11/06/24 @ 15:13 by Dinorah Pineda MD) Type 2 diabetes mellitus with hyperglycemia, with long-term current use of insulin Diabetic ulcer of right foot Diabetic neuropathy associated with diabetes mellitus due to underlying condition Amputated toe of right foot Surgical History (Updated 11/06/24 @ 14:07 by Dinorah Pineda MD) History of amputation of right second toe Family History Paternal Uncle Substance use disorder Mother Mental health disorder Social History Household Members: Spouse Housing: Apartment Alcohol intake: current Alcohol intake frequency: a few times a week Patient Tobacco Use Status: Current everyday Tobacco user Tobacco use type: Smokeless Tobacco e-Cigarette/Vaping Use: Never Used service: No Current occupational status: retired Cognitive needs: No Hearing needs: No Vision needs: Yes (reading glasses) Questionnaire Thrive Questionnaire Date Thrive assessed: 09/18/24 I am a: Patient What is your living situation today?: I have a steady place to live Within the past 12 months, did the food you bought not last and you didn't have the money to get more?: Never true Within the past 12 months, did you worry whether your food would run out before you got money to buy more?: Sometimes True Do you have trouble paying for medicines?: No Do you have trouble getting transportation to medical appointments?: No Do you have trouble paying your heating and electricity bill?: No Do you have trouble taking care of your child, family member or friend?: No Do you have trouble with day-to-day activities such as bathing, preparing meals, shopping, managing finances, etc.?: No Are you currently unemployed and looking for a job?: No Are you interested in more education?: No Please select the resources that you would like help with: None Currently or been in a relationship where the following occur: No concerns reported THRIVE Score: 1 DEVANTE-7 AMB Questionnaire DEVANTE-7 Date DEVANTE - 7 assessed: 09/18/24 Source: Developed by Drs. Perez Shah, Rosetta Abbasi, Ross Hall and colleagues, with an educational jasmyne from [employer] Review of Systems Const Reports no additional complaints and Denies fatigue Eyes Denies change in vision ENT Reports no additional complaints Card Denies chest pain at rest, Denies chest pain with activity, Denies irregular heart rhythm, Denies lightheadedness, Denies palpitations and Denies dyspnea on exertion Resp Denies cough, Denies dyspnea on exertion and Denies wheezing GI Reports no additional complaints Reports no additional complaints Musc Reports stiffness and Reports tingling (Both feet) Skin/Breast Reports as per HPI Neuro Reports tingling (Both feet) Endo Denies fatigue, Denies polydipsia, Denies polyuria and Denies palpitations Brian/Lymph Reports no additional complaints Aller/Immun Denies wheezing Physical exam (Primary Care) Vital Signs: Last Vital Signs Temp 98.4 F 11/06/24 13:26 Pulse 74 11/06/24 13:26 Resp 17 11/06/24 13:26 BP 100/58 L 11/06/24 13:26 Pulse Ox 95 11/06/24 13:26 Oxygen Delivery Method Room Air 11/06/24 13:26 BMI result Body Mass Index 30.6 Tobacco/Smoking Status: Tobacco use Status Tobacco use date assessed 11/06/24 11/06/24 13:28 Patient Tobacco Use Status Current everyday Tobacco 11/06/24 13:28 Tobacco use type Smokeless Tobacco 11/06/24 13:28 e-Cigarette/Vaping Use Never Used 11/06/24 13:28 Thrive Assessment: Date of Thrive Assessment Date Thrive assessed 09/18/24 11/06/24 13:28 Currently or been in a relationship where the following occur: No concerns reported Const Other: Alert oriented x3, no acute distress, ambulatory with the assistance of a cane Neck Other: Supple, with no lymphadenopathy palpated , thyroid gland nonpalpable Resp Effort & Inspection: normal respiratory effort and able to speak in complete sentences Auscultation: clear to auscultation bilaterally Cardio Other: S1-S2 present regular rate and rhythm GI Palpation (GI): Soft to palpation, nontender, no guarding and no masses Skin Other: Dry flaky skin with erythematous base on both lower extremities, yellow thickened toenails bilaterally , ulcer at the plantar aspect of right MTP, no active drainage Neuro General: absent sensation to monofilament (Both feet) Extrem Other: Amputated 2nd toe right foot with healed stump, positive ulcer on plantar aspect right foot Coding Level of Care Code Est Pt Level 4 (57573) Diagnoses Diabetic neuropathy associated with diabetes mellitus due to underlying condition E08.40 Diabetic ulcer of toe of right foot associated with type 2 diabetes mellitus, unspecified ulcer stage E11.621; L97.519 Diabetic foot ulcer location: toe Diabetes mellitus type: type 2 Non-pressure ulcer stage: unspecified non-pressure ulcer stage Type 2 diabetes mellitus with hyperglycemia, with long-term current use of insulin E11.65; Z79.4 Assessment & Plan Assessment & Plan (1) Diabetic neuropathy associated with diabetes mellitus due to underlying condition: Code(s): E08.40 - Diabetes mellitus due to underlying condition with diabetic neuropathy, unspecified Category: Medical Plan: Prescription sent for [employer] medsurg offloading shoe with PEG assist insole on the right (2) Diabetic ulcer of right foot: Code(s): E11.621 - Type 2 diabetes mellitus with foot ulcer; L97.519 - Non-pressure chronic ulcer of other part of right foot with unspecified severity Category: Medical Qualifiers: Diabetic foot ulcer location: toe Diabetes mellitus type: type 2 Non-pressure ulcer stage: unspecified non-pressure ulcer stage Qualified Code(s): E11.621 - Type 2 diabetes mellitus with foot ulcer; L97.519 - Non-pressure chronic ulcer of other part of right foot with unspecified severity Plan: Followed at [facility] wound care in [place] (3) Type 2 diabetes mellitus with hyperglycemia, with long-term current use of insulin: Code(s): E11.65 - Type 2 diabetes mellitus with hyperglycemia; Z79.4 - custodial (current) use of insulin Category: Medical Plan: Keep appointment with PCP on 01/28/2025 as directed. Continued on insulin glargine 50 units subQ q.p.m.. Reinforced importance of following diabetic diet and advised to see podiatry. Strongly advised to stop chewing tobacco, has Nicoderm patch but has not started using it. Continue lisinopril 2.5 mg daily
== END 2024-11-06 16:12 | disposition home or self-care (01) ==
LOC: HO.HMCC 12:59
PROVIDERS: PCP Nurse Practitioner Family; Visit Provider Internal Medicine
DX: E11.65 Type 2 diabetes mellitus with hyperglycemia (principal); E11.621 Type 2 diabetes mellitus with foot ulcer; L97.519 Non-pressure chronic ulcer of other part of right foot with unspecified severity; Z79.4 Long term (current) use of insulin

== ENCOUNTER → 2024-11-06 12:58 | Outpatient (BNVA) | payer MEDICARE, SELFPAY | PROVIDERS: PCP Nurse Practitioner Family; Visit Provider Internal Medicine | DX: E11.621 Type 2 diabetes mellitus with foot ulcer (principal); L97.519 Non-pressure chronic ulcer of other part of right foot with unspecified severity; E11.40 Type 2 diabetes mellitus with diabetic neuropathy, unspecified; E11.65 Type 2 diabetes mellitus with hyperglycemia; Z79.4 Long term (current) use of insulin; Z86.31 Personal history of diabetic foot ulcer | CPT/HCPCS: 99212 ==

== ENCOUNTER 2025-01-28 13:33 | Outpatient (AMB) | payer MEDICARE, SELFPAY ==
--- NOTE | 2025-01-28 13:44 | MHC.PC.OV ---
Vital Signs 01/28/25 13:52 Height 6 ft 2 in Weight 230 lb BMI 29.5 BP 118/72 Blood Pressure Location Lt brachial Position Sitting Respiration 16 Pulse 88 Pulse Source Pulse Oximeter Pulse Oximetry (%) 96 Oxygen Delivery Method Room Air Intake Visit Reasons: 4m follow up Manager Quality Compliance Required: No Accompanied by: Self / Same As Patient Allergies No Known Allergies Allergy (Verified 01/28/25 14:19) Medication List - Last Reconciled 01/28/25 by DERIK Gama-BC [[employer] medsurg offloading shoe with peg assist insole-right As directed] insulin glargine (Lantus U-100 Insulin) 50 units subcut QPM insulin syringe-needle U-100 Use to inject insulin 4 times per day lisinopril 2.5 mg PO DAILY 90 days trazodone 50 mg PO DAILY PRN Tobacco use date assessed: 01/28/25 Fall risk assessment: No Falls in past year Last assessed Fall Risk: 01/28/25 Dental Screening Dental Screen Date: 11/06/24 Did you have a dental visit in the last 12 months?: No Did you have a dental problem in the last 6 months where you did not have access to dental care?: No Was dental information given to patient?: Patient has dentist HPI 4m follow up HPI Details Chief Complaint The patient presents for a follow-up regarding diabetes management and wound care. History of Present Illness The patient is a 69-year-old male presenting with a follow-up for diabetes management and wound care. He had his right first toe amputated on November 18, 2024, due to a diabetic ulcer. Currently, he has a wound vacuum-assisted closure (VAC) device in place, which is draining serosanguinous fluid without saturation or staining of the dressing. The patient reports a positive dorsalis pedis pulse and denies any fever or chills. He was previously seen by infectious disease specialists and is scheduled to follow up with the surgeon. The visiting nurse association ([facility]NA) visits him three times a week, reporting that the wound is shrinking and has good granulation tissue. The patient refuses to undergo an eye examination and to see a control panel operator. He has positive sensation in the proximal aspects of the left plantar foot, but limited sensation in the distal plantar aspect as assessed with a monofilament. Dry skin is noted on his feet, and he applies diabetic foot cream every three days. 6.9 a1c today, understands the s/s of hypoglycemia and how to correct it Social History - The patient applies diabetic foot cream every three days. Health Maintenance - Refusal of eye examination - Refusal to see a control panel operator - declines vaccinations Review of Systems - Cardiovascular: Denies fever, chills, n/v, drainage outside of the wound vac. Physical Exam General: Cooperative, healthy appearing, comfortable, no acute distress and well developed Orientation: Patient oriented x3 Limitations: No limitations Head: Normal to inspection Ears: Hearing grossly normal bilaterally Nose: Normal external nose present Face and sinus: Normal facial exam Eyes: Refuses any kind of eye exam Neck: Normal visual inspection and Yes full ROM Respiratory: Normal respiratory effort and able to speak in complete sentences. Lungs are fairly clear to auscultation bilaterally Cardiovascular: Regular rate and rhythm. Normal S1 and S2 GI: Normal to inspection. Soft to palpation and nontender Skin: No rashes or lesions noted. Some dry skin noted on the left foot Neuro: Patient oriented x3 Extremities: Right first toe amputated due to a diabetic ulcer. Wound vac present, draining serrous sanguineous drainage, no saturation or staining on the dressing. Positive dorsalis pedis pulse present. Left foot with positive sensation mostly to the proximal aspects of the plantar foot. Limited sensation on the left foot distal plantar aspect with the use of monofilament. plan 1. Diabetes Mellitus With Complications The patient will continue to manage diabetes with regular follow-ups and monitoring of blood glucose levels. He is advised to adhere to diabetic foot care practices, including the use of diabetic foot cream. 2. Diabetic Foot Ulcer The wound is being managed with a wound VAC, and the patient is scheduled for follow-up with the surgeon. The VNA will continue to monitor the wound three times a week. 3. Peripheral Neuropathy The patient is encouraged to monitor foot sensation and report any changes. 4. toe amputation Discussion Notes During the visit, we discussed the importance of managing diabetes and adhering to foot care practices to prevent further complications. The patient was informed about the current status of the wound and the positive progress noted by the VNA. Follow-up with the surgeon was emphasized, and the patient was encouraged to continue using diabetic foot cream regularly. Patient Instructions - Continue using diabetic foot cream every three days. - Follow up with the surgeon as scheduled. - Monitor blood glucose levels regularly. - Report any changes in foot sensation immediately. [facility] Medical History Type 2 diabetes mellitus with hyperglycemia, with long-term current use of insulin Diabetic ulcer of right foot Diabetic neuropathy associated with diabetes mellitus due to underlying condition Amputated toe of right foot Surgical History History of amputation of right second toe Family History Paternal Uncle Substance use disorder Mother Mental health disorder Social History Household Members: Spouse Housing: Apartment Alcohol intake: current Alcohol intake frequency: a few times a week Patient Tobacco Use Status: Current everyday Tobacco user Tobacco use type: Smokeless Tobacco e-Cigarette/Vaping Use: Never Used service: No Current occupational status: retired Cognitive needs: No Hearing needs: No Vision needs: Yes (reading glasses) Questionnaire PHQ-9 Over the last 2 weeks, how often have you been bothered by any of the following problems? 1. Little interest or pleasure in doing things: nearly every day 2. Feeling down, depressed, or hopeless: nearly every day 3. Trouble falling or staying asleep, or sleeping too much: nearly every day 4. Feeling tired or having little energy: nearly every day 5. Poor appetite or overeating: nearly every day 6. Feeling bad about yourself - or that you are a failure or have let yourself or your family down: not at all 7. Trouble concentrating on things, such as reading the newspaper or watching television: not at all 8. Moving or speaking so slowly that other people could have noticed. Or the opposite - being so fidgety or restless that you have been moving around a lot more than usual: not at all 9. Thoughts that you would be better off or of hurting yourself in some way: not at all Total score: 15 Depression Screening Interpretation: Positive Depression Screening Follow-up: Existing condition and Declines treatment Depression Screening Done: Yes 46112 - PHQ-9 Billing: Yes Source: Developed by Khadar Huertaset B.W. Elroy, Ross Hall and colleagues, with an educational jasmyne from [employer]. Thrive Questionnaire Date Thrive assessed: 09/18/24 I am a: Patient What is your living situation today?: I have a steady place to live Within the past 12 months, did the food you bought not last and you didn't have the money to get more?: Never true Within the past 12 months, did you worry whether your food would run out before you got money to buy more?: Sometimes True Do you have trouble paying for medicines?: No Do you have trouble getting transportation to medical appointments?: No Do you have trouble paying your heating and electricity bill?: No Do you have trouble taking care of your child, family member or friend?: No Do you have trouble with day-to-day activities such as bathing, preparing meals, shopping, managing finances, etc.?: No Are you currently unemployed and looking for a job?: No Are you interested in more education?: No Please select the resources that you would like help with: None Currently or been in a relationship where the following occur: No concerns reported THRIVE Score: 1 DEVANTE-7 AMB Questionnaire DEVANTE-7 Date DEVANTE - 7 assessed: 01/28/25 Feeling nervous, anxious, or on edge: 0 = Not at all Not being able to stop or control worryin = Not at all Worrying too much about different things: 0 = Not at all Trouble relaxin = Not at all Being so restless that it is hard to sit still: 0 = Not at all Becoming easily annoyed or irritable: 0 = Not at all Feeling afraid as if something awful might happen: 0 = Not at all Total DEVANTE-7 score (0-4 normal; 5-9 mild; 10-14 moderate; 15-21 severe): 0 Source: Developed by Drs. Perez Shah, Rosetta Abbasi, Ross Hall and colleagues, with an educational jasmyne from [employer]. DEVANTE-7 Assessment Billing DEVANTE-7 Assessment Tool: DEVANTE-7 Assessment 19499 (denies any si or hi, refuses therapist/treatment) Physical exam (Primary Care) Vital Signs: Last Vital Signs Pulse 88 01/28/25 13:52 Resp 16 01/28/25 13:52 BP 118/72 01/28/25 13:52 Pulse Ox 96 01/28/25 13:52 Oxygen Delivery Method Room Air 01/28/25 13:52 BMI result Body Mass Index 29.5 Tobacco/Smoking Status: Tobacco use Status Tobacco use date assessed 01/28/25 01/28/25 13:58 Patient Tobacco Use Status Current everyday Tobacco 01/28/25 13:45 Tobacco use type Smokeless Tobacco 01/28/25 13:45 e-Cigarette/Vaping Use Never Used 01/28/25 13:45 PHQ-9: PHQ-9 Score PHQ-9: Total score 15 01/28/25 13:58 Depression Screening Interpretation: Positive Depression Screening Follow-up: Existing condition and Declines treatment Thrive Assessment: Date of Thrive Assessment Date Thrive assessed 09/18/24 01/28/25 13:45 Currently or been in a relationship where the following occur: No concerns reported Coding Level of Care Code Est Pt Level 3 (81026) Diagnoses Diabetic ulcer of toe of right foot associated with type 2 diabetes mellitus, unspecified ulcer stage E11.621; L97.519 Diabetic foot ulcer location: toe Diabetes mellitus type: type 2 Non-pressure ulcer stage: unspecified non-pressure ulcer stage Amputation of right great toe S98.111A Diabetic neuropathy associated with diabetes mellitus due to underlying condition E08.40 Screening PSA (prostate specific antigen) Z12.5 Additional Codes PHQ-9 - 70974 - PHQ-9 Billing: Yes ([id number]) DEVANTE-7 Assessment Billing - DEVANTE-7 Assessment Tool: DEVANTE-7 Assessment 44849 ([id number]) Assessment & Plan Assessment & Plan (1) Diabetic ulcer of right foot: Code(s): E11.621 - Type 2 diabetes mellitus with foot ulcer; L97.519 - Non-pressure chronic ulcer of other part of right foot with unspecified severity Category: Medical Qualifiers: Diabetic foot ulcer location: toe Diabetes mellitus type: type 2 Non-pressure ulcer stage: unspecified non-pressure ulcer stage Qualified Code(s): E11.621 - Type 2 diabetes mellitus with foot ulcer; L97.519 - Non-pressure chronic ulcer of other part of right foot with unspecified severity (2) Amputation of right great toe: Code(s): S98.111A - Complete traumatic amputation of right great toe, initial encounter Category: Medical (3) Diabetic neuropathy associated with diabetes mellitus due to underlying condition: Code(s): E08.40 - Diabetes mellitus due to underlying condition with diabetic neuropathy, unspecified Category: Medical (4) Screening PSA (prostate specific antigen): Code(s): Z12.5 - Encounter for screening for malignant neoplasm of prostate Category: Medical Plan . Orders: Orders AMB Hemoglobin A1c Today Z13.9 - Encounter for screening, unspecified Prostate Specific Antigen Scr Today Z12.5 - Encounter for screening for malignant neoplasm of prostate Medications: Changed From insulin glargine (Lantus U-100 Insulin) 60 units (0.6 mL) subcut QPM 50 mL 0RF To insulin glargine (Lantus U-100 Insulin) 50 units subcut QPM
[2025-01-28 13:52] VITALS: BP 118/72; PULSE 88; RESP 16; O2SAT 96; BMI 29.5
== END 2025-01-28 14:36 | disposition home or self-care (01) ==
LOC: HO.HMCC 13:33
PROVIDERS: PCP Nurse Practitioner Family; Visit Provider Nurse Practitioner Family
DX: E11.621 Type 2 diabetes mellitus with foot ulcer (principal); L97.519 Non-pressure chronic ulcer of other part of right foot with unspecified severity; S98.111A Complete traumatic amputation of right great toe, initial encounter; Z12.5 Encounter for screening for malignant neoplasm of prostate

== ENCOUNTER → 2025-01-28 13:33 | Outpatient (BNVA) | payer MEDICARE, SELFPAY | PROVIDERS: PCP Nurse Practitioner Family; Visit Provider Nurse Practitioner Family | DX: E11.51 Type 2 diabetes mellitus with diabetic peripheral angiopathy without gangrene (principal); E11.621 Type 2 diabetes mellitus with foot ulcer; L97.519 Non-pressure chronic ulcer of other part of right foot with unspecified severity; E11.40 Type 2 diabetes mellitus with diabetic neuropathy, unspecified; Z96.89 Presence of other specified functional implants; Z89.411 Acquired absence of right great toe; Z86.31 Personal history of diabetic foot ulcer | CPT/HCPCS: 83036; 96127; 99212 ==

== ENCOUNTER → 2025-03-10 23:59 | Outpatient (BNV) | payer MEDICARE, SELFPAY | PROVIDERS: PCP Nurse Practitioner Family; Visit Provider Nurse Practitioner Family | DX: E11.22 Type 2 diabetes mellitus with diabetic chronic kidney disease (principal); I12.9 Hypertensive chronic kidney disease with stage 1 through stage 4 chronic kidney disease, or unspecified chronic kidney disease; N18.31 Chronic kidney disease, stage 3a | CPT/HCPCS: G0179 ==